=== PATIENT | male | born 1995 | race Hispanic/Latino ===

== ENCOUNTER → 2021-04-16 | Outpatient (CLI) | payer OTHER ==
--- NOTE | 2021-04-16 16:51 | REP ---
INDICATION: DENSITY RT LUNG. COMPARISON: Suspected granuloma seen on shoulder radiograph outside facility. Please confirm. TECHNIQUE: Noncontrast images through the chest with coronal and sagittal reconstructions. FINDINGS: The lung [place] are well inflated without infiltrate, pleural effusion, atelectasis or mass. On axial image 18 there is a subpleural right upper lobe calcified nodule which would correspond to the description of a right upper lobe finding on radiograph. There is no other nodule, mass, infiltrate, pleural thickening, calcified plaque or other finding. No pneumothorax or pneumomediastinum. The heart is not enlarged. There is no pericardial thickening or effusion. No pathologic sized mediastinal, hilar, axillary or supraclavicular adenopathy. Thymic remnant in the anterior superior mediastinum appears normal. No hiatal hernia. Bone windows are unremarkable. The upper abdomen shows no hepatosplenomegaly, biliary dilatation or adjacent ascites. No abnormal calcifications there is a focal fat deposit about 11 mm in diameter is subcapsular right lobe of the liver near the dome of the liver on axial image 66, coronal image 52, a benign finding. Gallbladder without calcified stone or mass visualized. Upper poles of the kidneys, adrenal gland, pancreas and portions of bowel included were all unremarkable. IMPRESSION: 1. Confirmation of presence of a small calcified granuloma subpleural right upper lobe peripherally. No other significant or acute finding. <Electronically signed by Deniz Larkin > 04/16/21 [id number]
== END ==
LOC: M RAD 16:04
PROVIDERS: ATTEND Nurse Practitioner
DX: R91.1 Solitary pulmonary nodule (principal)

== ENCOUNTER → 2021-07-10 | Outpatient (CLI) | payer OTHER ==
[~2021-07-10] MED LIST: ISOVUE-300 61% 50ML VIAL As Ordered ONE; LIDOCAINE 1% MDV 20ML VIAL As Ordered ONE; TRIAMCINOLONE ACETONIDE SUSP 40 MG/ML VIAL (J3301) As Ordered ONE
--- NOTE | 2021-07-10 12:39 | REP ---
INDICATION: SPRAIN OF LT HIP. COMPARISON: None TECHNIQUE: The procedure was performed by TYLER Land, under the direct supervision of Dr. Tejeda. The benefits and risks of the procedure were explained to the patient, and an informed consent was obtained. Directly prior to the start of the procedure, a formal time-out was completed in the procedure room. The left hip joint space was localized using fluoroscopic guidance. The skin was prepped and draped in a sterile fashion. Approximately 5 mL of 1% Lidocaine 10 mg/ml was used as a local anesthetic. Using fluoroscopic guidance, a #22 gauge spinal needle was inserted and advanced into the left hip joint space. Approximately 1 mL of Isovue 300 was injected to verify placement. Ten ML of a solution containing 9 mL 1% lidocaine 10 mg/ml and 1 ml Kenalog 40 mg was injected into the joint space. The needle was removed and hemostasis was achieved. FINDINGS: The patient tolerated the procedure well and there were no immediate complications. IMPRESSION: 1. Technically successful left hip arthrogram. 0.1 minutes of fluoroscopy time was utilized for this procedure. Some fluoroscopic images are performed with last image hold technology. These images require no additional radiation. <Electronically signed by Jennifer Escoto > 07/10/21 [id number] <Electronically signed by Eleazar Tejeda > 07/10/21 1239
== END ==
LOC: M RADPRO 09:49
PROVIDERS: ATTEND Physician Assistant Surgical
DX: M24.852 Other specific joint derangements of left hip, not elsewhere classified (principal)
CPT/HCPCS: 20610; 77002; J3301; Q9967

== ENCOUNTER 2021-12-21 17:44 | Emergency (ER) | payer OTHER ==
[~2021-12-21] VITALS: Ht 175.3 cm; Wt 94.5 kg
[2021-12-21] MEDS ORDERED: LISI10TA22 PO (17:56)
[2021-12-21] MEDS ORDERED: lisinopriL 5 MG TAB PO ONE (18:20)
[2021-12-21] MEDS ORDERED: ACETAMINOPHEN TAB 650MG DOSE (2X325MG) PO ONE (18:20)
[2021-12-21] MEDS ORDERED: KETOROLAC 30 MG/ML 1ML VIAL IM ONE (18:20)
[2021-12-21 18:39] VITALS: BP 138/71
[2021-12-21 19:18] VITALS: BP 143/86
[2021-12-21] MEDS ORDERED: KETO10TAB PO (19:20)
== END 2021-12-21 19:49 | disposition home or self-care (01) ==
LOC: M ED 17:44
DX: R51.9 Headache, unspecified (principal); I10 Essential (primary) hypertension; G47.9 Sleep disorder, unspecified; Z79.899 Other long term (current) drug therapy
CPT/HCPCS: 96372; 99283; J1885

== ENCOUNTER 2022-01-09 10:16 | Emergency (ER) | payer OTHER ==
[~2022-01-09] VITALS: Ht 175.3 cm; Wt 100.0 kg
[~2022-01-09 10:16] MED LIST changes: -ISOVUE-300 61% 50ML VIAL As Ordered ONE; +KETO10TAB PO; -LIDOCAINE 1% MDV 20ML VIAL As Ordered ONE; +LISI10TA22 PO; -TRIAMCINOLONE ACETONIDE SUSP 40 MG/ML VIAL (J3301) As Ordered ONE
[2022-01-09] MEDS ORDERED: LISI5TAB11 PO (10:41)
[2022-01-09 12:24] VITALS: O2SAT 98
[2022-01-09] MEDS ORDERED: BENZ200C70 PO (13:54)
[2022-01-09 14:15] VITALS: BP 140/78
== END 2022-01-09 14:17 | disposition home or self-care (01) ==
LOC: EDBD 10:16 → M ED 10:16
DX: R50.9 Fever, unspecified (principal); R05.9 Cough, unspecified; U07.1 COVID-19; I10 Essential (primary) hypertension; Z79.899 Other long term (current) drug therapy

== ENCOUNTER 2022-08-14 11:25 | Emergency (ER) | payer OTHER ==
[~2022-08-14] VITALS: Ht 175.3 cm; Wt 105.3 kg
[~2022-08-14 11:25] MED LIST changes: +BENZ200C70 PO; +LISI5TAB11 PO
[2022-08-14] MEDS ORDERED: LIDOCAINE 2% MDV 20ML VIAL SC ONE (12:20)
[2022-08-14] MEDS ORDERED: BACITRACIN OINTMENT 30GM TUBE TOP STA (13:49)
[2022-08-14] MEDS ORDERED: NORCO 5/325MG TABLET (HOME DOSE PACK) PO ONE (13:50)
[2022-08-14] MEDS ORDERED: CEPHALEXIN 500 MG CAP PO STA (13:50)
[2022-08-14] MEDS ORDERED: CEPH500C PO (13:52)
[2022-08-14] MEDS ORDERED: HYDR-3713 PO (13:52)
[2022-08-14 14:06] VITALS: BP 152/78
== END 2022-08-14 14:10 | disposition home or self-care (01) ==
LOC: M ED 11:25
DX: T81.31XA Disruption of external operation (surgical) wound, not elsewhere classified, initial encounter (principal); I10 Essential (primary) hypertension; Z79.899 Other long term (current) drug therapy